=== PATIENT | female | born 1990 | race Hispanic/Latino ===

== ENCOUNTER 2024-06-24 12:52 | Emergency (ER) | payer BC, OTHER ==
[~2024-06-24] VITALS: Ht 172.7 cm; Wt 88.5 kg
[2024-06-24] MEDS ORDERED: AMOX TR-K CLV1 EAC1 PO (15:28)
[2024-06-24 15:41] VITALS: BP 140/72
== END 2024-06-24 15:43 | disposition home or self-care (01) ==
LOC: ED 12:52
DX: H92.01 Otalgia, right ear (principal); K02.9 Dental caries, unspecified
CPT/HCPCS: 99282